=== PATIENT | male | born 1970 | race Caucasian/White ===

== ENCOUNTER 2018-11-26 21:03 | Emergency (ER) | payer MEDICAID, OTHER ==
[2018-11-26] MEDS ORDERED: Sodium Chloride 0.9% 1000 ML 1,000 ML IV SCH (21:30)
[2018-11-26] MEDS ORDERED: Ativan 2 MG/1 ML VIAL IV ONE (21:30)
--- NOTE | 2018-11-26 21:38 | ERPHSYRPT ---
- History of Present Illness Time Seen by Provider: 11/26/18 21:22 Source: patient Exam Limitations: no limitations Patient Subjective Stated Complaint: Anxiety Triage Nursing Assessment: Patient ambulated back to ED and transferred self to bed. Patient A+O X 3. Patient's skin pink, warm and dry. Patient complains of anxiety for one month. Patient states his chest is a dull pain 1/10. Patient complains of his head not feeling right and not able to think properly. Lungs clear a/p mary. No edema noted. Heart tones audible. Physician History: " I have anxiety" According to patient and his mother, he has been c/o anxiety attacks for about 3 months. He is also c/o wide variety of aches and pain, headaches, chest pain ( currently 1/10), SOB, dizziness, nausea, tingling, numbness, a "bump " on his left parietal scalp. He denies recent fall, injury, no fever, productive cough, vomiting, diaphoresis, or any sign of distress. Timing/Duration: intermittent Severity of Symptoms-Max: mild Severity of Symptoms-Current: mild Context related to: other (none) Suicidal thoughts: other (denies) Associated Symptoms: anxiety, No hostile, No hallucinating, No ingestion, No paranoid, No suicidal ideation Previous symptoms: same symptoms as today Allergies/Adverse Reactions: levofloxacin [From Levaquin] Allergy (Verified 11/26/18 21:11) Difficulty Breathing Home Medications: No Reportable Medications [No Reported Medications] 09/09/12 [History] Hx Tetanus, Diphtheria Vaccination/Date Given: No Hx Influenza Vaccination/Date Given: No Hx Pneumococcal Vaccination/Date Given: No Immunizations Up to Date: Yes - Past Medical History Pertinent Past Medical History: Yes Neurological History: No Pertinent History ENT History: No Pertinent History Cardiac History: Aneurysm, Angina, Arrhythmia, Congestive Heart Failure, Coronary Artery Disease, High Cholesterol, Hypertension, Myocardial Infarction ( [place]) Respiratory History: No Pertinent History Endocrine Medical History: No Pertinent History Musculoskeletal History: No Pertinent History GI Medical History: No Pertinent History History: No Pertinent History Psycho-Social History: Anxiety, Depression Male Reproductive Disorders: No Pertinent History Other Medical History: BROKEN BACK - Past Surgical History Past Surgical History: Yes Neuro Surgical History: No Pertinent History Cardiac: Angioplasty, CABG, Cardiac Catheterization, Cardiac Stent, Vascular Surgery Respiratory: Chest Surgery Gastrointestinal: No Pertinent History Genitourinary: No Pertinent History Musculoskeletal: No Pertinent History Male Surgical History: No Pertinent History Other Surgical History: broken back in 1999, Triple bypass 10 years ago - Social History Smoking Status: Current every day smoker How long have you smoked: years Exposure to second hand smoke: No Drug Use: none Patient Lives Alone: Yes - Review of Systems Constitutional: No Symptoms Eyes: No Symptoms Ears, Nose, & Throat: No Symptoms Respiratory: Dyspnea, No Cough, No Wheezing Cardiac: Chest Pain, No Edema Abdominal/Gastrointestinal: Nausea Genitourinary Symptoms: No Symptoms Musculoskeletal: Myalgias Skin: No Symptoms Neurological: Dizziness, Headache Psychological: Anxiety, No Alcohol Abuse, No Drug Abuse, No Suicidal Ideations, No Homicidal Ideations, No Hallucinations Endocrine: No Symptoms All Other Systems: Reviewed and Negative - Nursing Vital Signs Nursing Vital Signs: Initial Vital Signs Pulse Rate 91 H 11/26/18 21:12 Respiratory Rate 20 11/26/18 21:12 Blood Pressure 166/103 11/26/18 21:12 O2 Sat by Pulse Oximetry 99 11/26/18 21:12 Pain Scale Pain Intensity 0 - Physical Exam General Appearance: no apparent distress Eyes, Ears, Nose, Throat Exam: normal ENT inspection, pharynx normal, moist mucous membranes Neck Exam: normal inspection, non-tender, supple, No carotid bruit, No JVD Respiratory Exam: normal breath sounds, lungs clear, airway intact, No chest tenderness Cardiovascular Exam: regular rate/rhythm, normal heart sounds, normal peripheral pulses, No murmur Gastrointestinal/Abdominal Exam: soft, normal bowel sounds, No tenderness, No distention, No mass, No guarding, No ecchymosis, No rebound, No organomegaly Extremities Exam: normal inspection, other (no calf tenderness, swelling, negative Suraj's signs.), No edema Peripheral Pulses: carotid (R): 3+, carotid (L): 3+, dorsalis-pedis (R): 2+, dorsalis-pedis (L): 2+ Current Suicidality: denies suicide plan Neurological Exam: alert, normal mood/affect, oriented x 3 Appearance: appropriate appearance, no memory impairment Behavior/Eye Contact/Speech: alert & cooperative Thoughts/Hallucinations: normal thought pattern Skin Exam: normal color, warm, dry, No rash, No petechiae, No jaundice, No cyanosis SpO2 Interpretation: normal SpO2: 99 O2 Delivery: Room Air - Course Nursing assessment & vital signs reviewed: Yes EKG Interpreted by Me: RATE (90/min), NORMAL AXIS, NORMAL INTERVALS, NORMAL QRS , Non-specific ST Changes, Other (REPEAT eK:12 AM: unchanged.) - Radiology Exams Chest X-ray Interpretation: Interpreted by me, Negative - CT Exams Head CT Interpretation: Negative, Tele-radiologist Report Ordered Tests: Active Orders 24 hr Category Date Time Status Plastic Boat Patcher STAT Care 11/26/18 21:29 Active EKG-ER Only STAT Care 11/26/18 21:28 Active EKG-ER Only STAT Care 11/26/18 23:51 Active IV Insertion STAT Care 11/26/18 21:28 Active CHEST 1 VIEW (PORTABLE) Stat Exams 11/26/18 21:28 Taken HEAD WITHOUT CONTRAST [CT] Stat Exams 11/26/18 21:32 Taken CBC W DIFF Stat Lab 11/26/18 22:03 Completed CK-Creatinine Phosphokinase Stat Lab 11/26/18 22:03 Completed CMP Stat Lab 11/26/18 22:03 Completed D-DIMER QUANTITATION Stat Lab 11/26/18 23:27 Completed ETHYL ALCOHOL Stat Lab 11/26/18 22:03 Completed Manual Differential NC Stat Lab 11/26/18 22:03 Completed NT PRO BNP Stat Lab 11/26/18 22:03 Completed PROTIME WITH INR Stat Lab 11/26/18 22:03 Completed PTT Stat Lab 11/26/18 22:03 Completed TROPONIN Q3H Lab 11/26/18 00:19 Completed TROPONIN Q3H Lab 11/27/18 00:30 Ordered TROPONIN Q3H Lab 11/27/18 03:30 Ordered TROPONIN Q3H Lab 11/27/18 06:30 Ordered TROPONIN Q3H Lab 11/27/18 09:30 Ordered TROPONIN Stat Lab 11/26/18 22:03 Completed TSH, 3RD Generation Stat Lab 11/26/18 22:03 Completed Urine Triage Profile Stat Lab 11/26/18 22:52 Completed Medication Summary Generic Name Dose Route Start Last Admin Trade Name Freq PRN Reason Stop Dose Admin Sodium Chloride 1,000 mls @ 100 mls/hr 11/26/18 21:30 11/26/18 22:30 Sodium Chloride 0.9% 1000 Ml IV 12/26/18 21:29 100 mls/hr .Q10H CHARLIE Administration Discontinued Medications Generic Name Dose Route Start Last Admin Trade Name Yasmeen PRN Reason Stop Dose Admin Lorazepam 1 mg 11/26/18 21:30 11/26/18 22:30 Ativan 2 Mg/1 Ml Vial IV 11/26/18 21:31 1 mg STAT ONE Administration Lorazepam Confirm 11/26/18 22:06 Ativan 2 Mg/1 Ml Vial Administered 11/26/18 22:07 Dose 2 mg .ROUTE .STK-MED ONE Potassium Bicarbonate 50 meq 11/27/18 00:08 11/27/18 00:11 K-Lyte 25 Meq PO 11/27/18 00:09 50 meq STAT ONE Administration Potassium Bicarbonate Confirm 11/27/18 00:11 K-Lyte 25 Meq Administered 11/27/18 00:12 Dose 50 meq .ROUTE .STK-MED ONE Potassium Chloride 40 meq 11/27/18 00:15 11/27/18 00:09 Potassium Chloride 20 Meq Powder For Oral Lisa PO 11/27/18 00:16 Not Given NOW ONE Potassium Chloride Confirm 11/27/18 00:06 Klor Con 10 Meq Administered 11/27/18 00:07 Dose 40 meq PO .STK-MED ONE Lab/Rad Data: Laboratory Result Diagrams 11/26/18 22:03 11/26/18 22:03 Laboratory Results 11/26/18 11/26/18 11/26/18 Range/Units 23:27 22:52 22:03 WBC (4.0-10.5) K/mm3 RBC (4.1-5.6) M/mm3 Hgb (12.5-18.0) gm/dl Hct (42-50) % MCV (78-100) fl MCH (26-32) pg MCHC (32-36) g/dl RDW (11.5-14.0) % Plt Count (150-450) K/mm3 MPV (6-9.5) fl Gran % (36.0-66.0) % Eos # (Auto) (0-0.5) Absolute Lymphs (auto) (1.0-4.6) Absolute Monos (auto) (0.0-1.3) Lymphocytes % (24.0-44.0) % Monocytes % (0.0-12.0) % Eosinophils % (0.00-5.0) % Basophils % (0.0-0.4) % Absolute Granulocytes (1.4-6.9) Basophils # (0-0.4) PT 10.6 (8.83-12.87) SECONDS INR 0.94 (0.8-3.0) APTT 27.9 (24.1-36.1) SECONDS D-Dimer 461 (215-500) ng/mL Sodium (137-145) mmol/L Potassium (3.5-5.1) mmol/L Chloride (98-107) mmol/L Carbon Dioxide (22-30) mmol/L Anion Gap (5-15) MEQ/L BUN (9-20) mg/dL Creatinine (0.66-1.25) mg/dL Estimated GFR ML/MIN Glucose (74-106) mg/dL Calcium (8.4-10.2) mg/dL Total Bilirubin (0.2-1.3) mg/dL AST (17-59) U/L ALT (0-50) U/L Alkaline Phosphatase (38-126) U/L Creatine Kinase (55-170) U/L Troponin I (0.000-0.034) ng/mL NT-Pro-B Natriuret Pep (0-450) pg/mL Serum Total Protein (6.3-8.2) g/dL Albumin (3.5-5.0) g/dL TSH 3rd Generation (0.47-4.68) mIU/L Urine Opiates Level NEGATIVE (NEGATIVE) Ur Methadone NEGATIVE (NEGATIVE) Urine Barbiturates NEGATIVE (NEGATIVE) Ur Phencyclidine (PCP) NEGATIVE (NEGATIVE) Urine Amphetamine NEGATIVE (NEGATIVE) U Benzodiazepine Level NEGATIVE (NEGATIVE) Urine Cocaine NEGATIVE (NEGATIVE) Urine Marijuana (THC) NEGATIVE (NEGATIVE) Ethyl Alcohol (0-10) mg/dL 11/26/18 11/26/18 11/26/18 Range/Units 22:03 22:03 00:19 WBC 9.7 (4.0-10.5) K/mm3 RBC 4.24 (4.1-5.6) M/mm3 Hgb 13.9 (12.5-18.0) gm/dl Hct 41.2 L (42-50) % MCV 97.2 (78-100) fl MCH 32.8 H (26-32) pg MCHC 33.7 (32-36) g/dl RDW 13.5 (11.5-14.0) % Plt Count 310 (150-450) K/mm3 MPV 10.2 H (6-9.5) fl Gran % 50.4 (36.0-66.0) % Eos # (Auto) 0.47 (0-0.5) Absolute Lymphs (auto) 3.24 (1.0-4.6) Absolute Monos (auto) 1.06 (0.0-1.3) Lymphocytes % 33.3 (24.0-44.0) % Monocytes % 10.9 (0.0-12.0) % Eosinophils % 4.8 (0.00-5.0) % Basophils % 0.6 (0.0-0.4) % Absolute Granulocytes 4.90 (1.4-6.9) Basophils # 0.06 (0-0.4) PT (8.83-12.87) SECONDS INR (0.8-3.0) APTT (24.1-36.1) SECONDS D-Dimer (215-500) ng/mL Sodium 142 (137-145) mmol/L Potassium 3.1 L (3.5-5.1) mmol/L Chloride 103 (98-107) mmol/L Carbon Dioxide 27 (22-30) mmol/L Anion Gap 14.8 (5-15) MEQ/L BUN 10 (9-20) mg/dL Creatinine 0.93 (0.66-1.25) mg/dL Estimated GFR > 60.0 ML/MIN Glucose 84 (74-106) mg/dL Calcium 9.6 (8.4-10.2) mg/dL Total Bilirubin 0.50 (0.2-1.3) mg/dL AST 24 (17-59) U/L ALT 20 (0-50) U/L Alkaline Phosphatase 75 (38-126) U/L Creatine Kinase 126 (55-170) U/L Troponin I < 0.012 < 0.012 (0.000-0.034) ng/mL NT-Pro-B Natriuret Pep 304 (0-450) pg/mL Serum Total Protein 8.4 H (6.3-8.2) g/dL Albumin 4.7 (3.5-5.0) g/dL TSH 3rd Generation 4.290 (0.47-4.68) mIU/L Urine Opiates Level (NEGATIVE) Ur Methadone (NEGATIVE) Urine Barbiturates (NEGATIVE) Ur Phencyclidine (PCP) (NEGATIVE) Urine Amphetamine (NEGATIVE) U Benzodiazepine Level (NEGATIVE) Urine Cocaine (NEGATIVE) Urine Marijuana (THC) (NEGATIVE) Ethyl Alcohol < 10 (0-10) mg/dL - Progress Progress: improved Progress Note: 11/27/18 00:53 Pt was given IV Ativan, states, improved, denies pain or dizziness, no SOB, explained our findings to him and his family, he is being discharged to rest x 1 -2 days and follow up with PCP next week. Counseled pt/family regarding: lab results, diagnosis, need for follow-up, rad results - Departure Departure Disposition: Home Clinical Impression: Anxiety, Hypokalemia Condition: Stable Critical Care Time: No Referrals: DOCTOR,NO FAMILY [Primary Care Provider] - Instructions: Anxiety, Adult (DC), Hypokalemia (DC) Additional Instructions: Rest x 1-2 days, and follow up with PCP in 1 week, return if severe chest pain, shortness of breath, dizziness, or severe anxiety!
[2018-11-26 22:03] LABS: BASOPHIL % 0.6 % (0.0-0.4); Basophil (Absolute #) 0.06 (0-0.4); Eosinophil % 4.8 % (0.00-5.0); Eosinophil (Absolute #) 0.47 (0-0.5); Granulocytes % 50.4 % (36.0-66.0); Hematocrit 41.2 % (42-50); Hemoglobin 13.9 gm/dl (12.5-18.0); Lymphocyte (Absolute #) 3.24 (1.0-4.6); Lymphocytes % 33.3 % (24.0-44.0); Mean Cell Volume 97.2 fl (78-100); Mean Corpuscular Hemoglobin 32.8 pg (26-32); Mean Corpuscular Hgb Concent. 33.7 g/dl (32-36); Mean Platelet Volume 10.2 fl (6-9.5); Monocytes % 10.9 % (0.0-12.0); Platelet Count 310 K/mm3 (150-450); Red Blood Count 4.24 M/mm3 (4.1-5.6); Red Cell Distribution Width 13.5 % (11.5-14.0); White Blood Count 9.7 K/mm3 (4.0-10.5)
[2018-11-26] MEDS ORDERED: Ativan 2 MG/1 ML VIAL ONE (22:06)
[2018-11-26] MEDS ORDERED: Sodium Chloride 0.9% 1000 ML 1,000 ML ONE (22:07)
[2018-11-26 22:36] LABS: INR 0.94 (0.8-3.0); PROTIME 10.6 SECONDS (8.83-12.87)
[2018-11-26 22:38] LABS: PTT 27.9 SECONDS (24.1-36.1)
[2018-11-26 22:54] LABS: ALBUMIN 4.7 g/dL (3.5-5.0); ALKALINE PHOSPHATASE 75 U/L (38-126); ANION GAP 14.8 MEQ/L (5-15); BLOOD UREA NITROGEN 10 mg/dL (9-20); CHLORIDE 103 mmol/L (98-107); CK-Creatinine Phosphokinase 126 U/L (55-170); Calcium 9.6 mg/dL (8.4-10.2); Carbon Dioxide 27 mmol/L (22-30); Creatinine 1 0.93 mg/dL (0.66-1.25); Glucose 84 mg/dL (74-106); NT PRO BNP 304 pg/mL (0-450); Potassium 3.1 mmol/L (3.5-5.1); SGOT/AST 24 U/L (17-59); SGPT/ALT 20 U/L (0-50); SODIUM 142 mmol/L (137-145); Total Protein 8.4 g/dL (6.3-8.2)
[2018-11-26 22:59] LABS: ETHYL ALCOHOL < 10 mg/dL (0-10); TROPONIN < 0.012 ng/mL (0.000-0.034)
[2018-11-26 23:09] LABS: Amphetamine,Urine NEGATIVE (NEGATIVE); Barbiturate,Urine NEGATIVE (NEGATIVE); Benzodiazepine,Urine NEGATIVE (NEGATIVE); Cocaine,Urine NEGATIVE (NEGATIVE); Methadone,Urine NEGATIVE (NEGATIVE); Opiate,Urine NEGATIVE (NEGATIVE); PCP,Urine NEGATIVE (NEGATIVE); THC,Urine NEGATIVE (NEGATIVE)
[2018-11-27] MEDS ORDERED: Klor Con 10 MEQ PO ONE (00:06)
[2018-11-27] MEDS ORDERED: K-LYTE 25 MEQ PO ONE (00:08)
[2018-11-27] MEDS ORDERED: K-LYTE 25 MEQ ONE (00:11)
[2018-11-27] MEDS ORDERED: POTASSIUM CHLORIDE 20 MEQ POWDER FOR ORAL SOL PO ONE (00:15)
[2018-11-27 00:47] VITALS: BP 145/99; PULSE 90
[2018-11-27 00:56] VITALS: O2SAT 99
--- NOTE | 2018-11-27 07:00 | XRAY ---
Indication: Chest pain. Comparison: March 12, 2012. Portable chest remains clear again with a few incidental calcified granulomas. Heart is not enlarged again with CABG surgery. Bony thorax intact. Impression: Stable nonacute chest with chronic features.
--- NOTE | 2018-11-27 07:02 | XRAY ---
Indication: Headache, anxiety, and dizziness. Multiple contiguous axial images obtained through the head without contrast. Comparison: None Normal appearing brain parenchyma, ventricles, and bony calvarium. Visualized paranasal sinuses and mastoid air cells are clear. Impression: Normal CT head without contrast exam. Comment: Preliminary interpretation was made by [facility]. No discrepancy. CTDI 70.38
== END 2018-11-27 00:59 | disposition home or self-care (01) ==
LOC: ED 21:03
DX: F41.9 Anxiety disorder, unspecified (principal); E87.6 Hypokalemia; I50.9 Heart failure, unspecified; I25.10 Atherosclerotic heart disease of native coronary artery without angina pectoris; E78.00 Pure hypercholesterolemia, unspecified; I10 Essential (primary) hypertension; I25.2 Old myocardial infarction
CPT/HCPCS: 36000; 36415; 70450; 71045; 80053; 80307; 82550; 83880; 84443; 84484; 85025; 85379; 85610; 85730; 93005; 93041; 96360; 96361; 96374; 99285; J2060; A9270-GY; G0480